=== PATIENT | male | born 1985 | race Hispanic/Latino ===

== ENCOUNTER 2018-09-10 13:56 | Emergency (ER) | payer OTHER ==
[~2018-09-10] VITALS: Ht 165.1 cm; Wt 68.0 kg
[2018-09-10 14:45] VITALS: BP 138/82
== END 2018-09-10 14:45 | disposition home or self-care (01) | DRG 918 ==
LOC: ED 13:56
DX: T63.2X1A Toxic effect of venom of scorpion, accidental (unintentional), initial encounter (principal); Y92.89 Other specified places as the place of occurrence of the external cause

== ENCOUNTER 2022-06-29 14:48 | Emergency (ER) | payer OTHER ==
[~2022-06-29] VITALS: Ht 165.1 cm; Wt 68.0 kg
[2022-06-29 15:04] VITALS: BP 127/80
[2022-06-29 15:30] VITALS: BP 115/73
[2022-06-29 16:00] VITALS: BP 117/69
[2022-06-29 16:30] VITALS: BP 125/75
[2022-06-29 17:01] VITALS: BP 131/92
[2022-06-29] MEDS ORDERED: KEFLEX500 MG PO (17:24)
[2022-06-29] MEDS ORDERED: NAPROXEN500 MG PO (17:24)
[2022-06-29 17:36] VITALS: BP 131/92
== END 2022-06-29 17:36 | disposition home or self-care (01) | DRG 605 ==
LOC: ED 14:48
PROC: 0HQFXZZ Repair Right Hand Skin, External Approach (ICD-10-PCS; principal; 2022-06-29)
DX: S61.411A Laceration without foreign body of right hand, initial encounter (principal); W26.8XXA Contact with other sharp object(s), not elsewhere classified, initial encounter; Y93.89 Activity, other specified; Y92.89 Other specified places as the place of occurrence of the external cause; Y99.0 Civilian activity done for income or pay